=== PATIENT | female | born 1985 | race Caucasian/White ===

== ENCOUNTER 2019-03-16 19:37 | Emergency (ER) | payer SELFPAY ==
--- NOTE | 2019-03-16 20:09 | EDM.PDOC ---
ED HPI GENERAL MEDICAL PROBLEM - General Chief Complaint: Eye Problems Stated Complaint: [facility] Time Seen by Provider: 03/16/19 20:08 - History of Present Illness INITIAL COMMENTS - FREE TEXT/NARRATIVE: 34-year-old female presents emergency room with left eye pain. Patient was brought in by EMS because patient conceived had severe pain in her left eye. Early before developing this pain the patient was put in a contact lens did not going right she cannot see through it she took it out and had the pain. She did not attempt to put it back in. The patient is fairly new using contact lenses. She is not sure when her last tetanus shot was. She has no other complaints at this time Left Eye Pain Score (Numeric/FACES): 10 - Related Data Allergies Allergy/AdvReac Type Severity Reaction Status Date / Time No Known Allergies Allergy Verified 03/16/19 19:42 Home Meds: Home Meds Acetaminophen/HYDROcodone [Glidden 325-5 MG] 1 - 2 tab PO Q6H PRN #10 tablet 03/16 [Rx] Past Medical History - Past Surgical History Musculoskeletal Surgical History: Reports: Other (See Below) Other Musculoskeletal Surgeries/Procedures:: diskectomy Social & Family History - Family History Family Medical History: Noncontributory - Tobacco Use Smoking Status *Q: Never Smoker Second Hand Smoke Exposure: No - Caffeine Use Caffeine Use: Reports: None - Recreational Drug Use Recreational Drug Use: No ED ROS GENERAL - Review of Systems Review Of Systems: See Below Constitutional: Reports: No Symptoms HEENT: Reports: Eye Pain Respiratory: Reports: No Symptoms Cardiovascular: Reports: No Symptoms GI/Abdominal: Reports: No Symptoms ED EXAM GENERAL W FULL EYE - Physical Exam Exam: See Below Exam Limited By: No Limitations General Appearance: Alert, No Apparent Distress Eye Exam: Right Eye: Normal Inspection, Left Eye: Corneal Abrasion, Bilateral Eye: EOMI, PERRL Eyelids: Left: Erythema, Lid Everted for Exam Conjunctiva & Sclera: Left: Injected Cornea Exam: Left: Corneal Abrasion, Examined with Flourescein (She has a large superficial abrasion over the medial superior surface this is fairly superficial ) Extraocular Movements: Bilateral: Intact Pupils: Unequal Pupillary Reaction: Bilateral: Brisk Anterior Chamber: Bilateral: Normal Appearance Posterior Chamber: Bilateral: Normal Funduscopic Respiratory/Chest: No Respiratory Distress, Lungs Clear, Normal Breath Sounds Cardiovascular: Regular Rate, Rhythm, No Edema, No Murmur Course - Vital Signs Last Recorded V/S: Last Vital Signs Temp 36.8 C 03/16/19 19:38 Pulse 56 L 03/16/19 19:38 Resp 18 03/16/19 19:38 BP 174/97 H 03/16/19 19:38 Pulse Ox 100 03/16/19 19:38 - Orders/Labs/Meds Orders: Active Orders 24 hr Category Date Time Status Vaccines to be Administered [RC] PER UNIT ROUTINE Care 03/16/19 20:31 Ordered Meds: Medications Discontinued Medications Generic Name Dose Route Start Last Admin Trade Name Freq PRN Reason Stop Dose Admin Hydrocodone Bitart/Acetaminophen 1 tab 03/16/19 20:30 Glidden 325-5 Mg PO 03/16/19 20:31 ONETIME ONE Diphtheria/Tetanus/Acell Pertussis 0.5 ml 03/16/19 20:30 Adacel IM 03/16/19 20:31 .ONCE ONE Erythromycin 1 gm 03/16/19 20:31 Erythromycin 0.5% Ophth Oint EYELF 03/16/19 20:32 ONETIME ONE Fluorescein Sodium 1 mg 03/16/19 20:15 03/16/19 20:23 Ful-Sandy EYELF 03/16/19 20:16 1 mg ONETIME ONE Administration - Re-Assessments/Exams Free Text/Narrative Re-Assessment/Exam: 03/16/19 20:42 Patient was found to have superficial however, an extensive portion of the left medial superior cornea abrasion most likely cause of her discomfort. She is not sure when her last tetanus shot is this is updated Departure - Departure Time of Disposition: 20:43 Disposition: Home, Self-Care 01 Clinical Impression: Corneal abrasion - Discharge Information Prescriptions: Acetaminophen/HYDROcodone [Glidden 325-5 MG] 1 - 2 tab PO Q6H PRN #10 tablet PRN Reason: Pain Referrals: PCP,Unknown [Primary Care Provider] - Forms: ED Department Discharge Additional Instructions: Return to the emergency room with any questions problems worsening symptoms. Follow-up with your eye doctor on Tuesday for a recheck. Use the erythromycin ointment every couple hours while awake as we discussed. Use the pain pills one or 2 every 6 hours as needed. - My Orders Last 24 Hours: My Active Orders 03/16/19 20:31 Vaccines to be Administered [RC] PER UNIT ROUTINE - Assessment/Plan Last 24 Hours: My Active Orders 03/16/19 20:31 Vaccines to be Administered [RC] PER UNIT ROUTINE
[2019-03-16] MEDS ORDERED: Fluorescein 1 MG Ophth Strip EYELF ONE (20:15)
[2019-03-16] MEDS ORDERED: Acetaminophen/HYDROcodone 325-5 MG Tab PO ONE (20:30)
[2019-03-16] MEDS ORDERED: Diphtheria,Pertussis(Acell),Tetanus Vaccine 0.5 ML Syringe IM ONE (20:30)
[2019-03-16] MEDS ORDERED: Erythromycin Base 0.5% Ophth Oint 1 GM Tube EYELF ONE (20:31)
== END 2019-03-16 21:27 | disposition home or self-care (01) ==
LOC: JD.ED 19:37
DX: H18.822 Corneal disorder due to contact lens, left eye (principal); Z23 Encounter for immunization
CPT/HCPCS: 90471; 90700; 99284; A9270